=== PATIENT | female | born 2000 | race Caucasian/White ===

== ENCOUNTER 2024-05-15 12:53 | Inpatient (IN) | payer MEDICAID ==
[2024-05-15] MEDS ORDERED: Sodium Chloride 0.9% 2.5 ML Syringe FLUSH PRN ×2 (13:56→15:41)
[2024-05-15] MEDS ORDERED: Sodium Chloride 0.9% 20 ML SDV IV PRN (13:56)
[2024-05-15] MEDS ORDERED: Citric Acid/Sodium Citrate Solution 30 ML Cup PO ONE (13:56)
[2024-05-15] MEDS ORDERED: Sodium Chloride 0.9% 10 ML Syringe FLUSH PRN ×2 (13:56→15:41)
[2024-05-15] MEDS ORDERED: Oxytocin/0.9 % Sodium Chloride 30 UNIT/500 ML BAG IV SCH (14:00)
[2024-05-15] MEDS: Lactated Ringers 1,000 ML IV SCH ×2 (14:05→16:19)
[2024-05-15 14:09] LABS: HEMATOCRIT 35.2 % (37.0-47.0); HEMOGLOBIN 12.4 g/dL (12.0-16.0); MEAN CORPUSCULAR HEMOGLOBIN 33.5 pg (28.0-32.0); MEAN CORPUSCULAR HGB CONC 35.2 g/dL (32.0-36.0); MEAN CORPUSCULAR VOLUME 95.1 fL (83.0-99.0); MEAN PLATELET VOLUME 11.6 fL (9.4-12.3); PLATELET COUNT,PLT 236 K/uL (150-400); WHITE BLOOD CELL COUNT,WBC 13.44 K/uL (3.9-11.3)
[2024-05-15] MEDS ORDERED: ceFAZolin 2 GM in Sodium Chloride 0.9% 50 ML IV ONE (14:19)
[2024-05-15 15:34] LABS: AMPHETAMINES SCREEN, URINE NEGATIVE (CUTOFF=500); BARBITURATE SCREEN,URINE NEGATIVE (CUTOFF=200); BENZODIAZEPINES SCREEN,URINE NEGATIVE (CUTOFF=150); BUPRENORPHINE SCREEN,URINE NEGATIVE (CUTOFF=10); METHADONE SCREEN, URINE NEGATIVE (CUTOFF=200); METHAMPHETAMINES SCREEN, URINE NEGATIVE (CUTOFF=500); OXYCODONE SCREEN,URINE NEGATIVE (CUT0FF=100); PCP SCREEN,URINE NEGATIVE (CUTOFF=25); THC SCREEN,URINE 20 NG/ML NEGATIVE (CUTOFF=50)
[2024-05-15] MEDS ORDERED: Temazepam 15 MG Cap PO PRN (15:41)
[2024-05-15] MEDS ORDERED: Misoprostol 200 MCG Tab RECTAL PRN (15:41)
[2024-05-15] MEDS ORDERED: Methylergonovine 0.2 MG/1 ML Amp IM PRN (15:41)
[2024-05-15] MEDS ORDERED: Bisacodyl 10 MG Supp RECTAL PRN (15:41)
[2024-05-15] MEDS ORDERED: Acetaminophen/oxyCODONE 325-5 MG Tab PO PRN ×2 (15:41)
[2024-05-15] MEDS ORDERED: Tranexamic Acid IN NACL,ISO-OS 1,000 MG in Premix Bag 1 BAG IV PRN (15:41)
[2024-05-15] MEDS ORDERED: Ondansetron 4 MG/2 ML SDV IVPUSH PRN (15:41)
[2024-05-15] MEDS ORDERED: Lanolin 100% Cream 7 GM Tube TOP PRN (15:41)
[2024-05-15] MEDS: Ketorolac 30 MG/ML SDV IVPUSH SCH (16:22)
[2024-05-15 16:23] LABS: PH,UMBILICAL ARTERIAL 7.263 (7.18-7.38); PH,UMBILICAL VENOUS 7.304 (7.25-7.45)
[2024-05-15 18:04] LABS: CORONAVIRUS COVID-19 NAA NEGATIVE (NEGATIVE); INFLUENZA A NAA NEGATIVE (NEGATIVE); INFLUENZA B NAA NEGATIVE (NEGATIVE); RESPIRATORY SYNCYTIAL VIR NAA NEGATIVE (NEGATIVE)
[2024-05-15] MEDS: diphenhydrAMINE 50 MG/ML SDV IVPUSH PRN (18:08)
[2024-05-15] MEDS: Acetaminophen 1,000 MG in Premix Bag 1 BAG IV PRN (18:12)
[2024-05-15] MEDS ORDERED: Docusate Sodium 100 MG Cap PO SCH (21:00)
[2024-05-15] MEDS: Simethicone 80 MG Tab.Chew PO SCH (23:11)
[2024-05-16] MEDS ORDERED: Ibuprofen 800 MG Tab PO PRN (21:45)
== END 2024-05-16 01:10 | disposition home or self-care (01) | DRG 788 ==
LOC: MW.OB 12:53
PROVIDERS: ADMIT Obstetrics & Gynecology; ATTEND Obstetrics & Gynecology
PROC: 10D00Z1 Extraction of Products of Conception, Low, Open Approach (ICD-10-PCS; principal; 2024-05-15 15:00)
DX: O34.211 Maternal care for low transverse scar from previous cesarean delivery (principal); Z3A.39 39 weeks gestation of pregnancy; Z37.0 Single live birth
CPT/HCPCS: 01961; 0241U; 36415; 59025; 59514; 80305-QW; 82803; 85027; 86592; 86850; 86900; 86901; A9270-GY; J0131; J0690; J1100; J1200; J1790; J1885; J2274; J2371; J2405; J2590; J2795; J3010; J3490; J7120